=== PATIENT | female | born 1955 | race African-American/Black ===

== ENCOUNTER 2021-12-27 12:59 | Emergency (ER) | payer OTHER ==
[2021-12-27 15:07] LABS: CARBON DIOXIDE,CO2 26.1 mmol/L (21.0-32.0); POTASSIUM,K 3.2 mmol/L (3.5-5.1)
[2021-12-27] MEDS ORDERED: Potassium Chloride 20 MEQ Tab.ER PO ONE (15:14)
== END 2021-12-27 15:31 | disposition home or self-care (01) ==
LOC: MW.ED 12:59
DX: U07.1 COVID-19 (principal); I10 Essential (primary) hypertension; E11.9 Type 2 diabetes mellitus without complications; F17.210 Nicotine dependence, cigarettes, uncomplicated; E66.9 Obesity, unspecified; Z68.29 Body mass index [BMI] 29.0-29.9, adult; Z88.5 Allergy status to narcotic agent; Z88.0 Allergy status to penicillin; Z88.8 Allergy status to other drugs, medicaments and biological substances; Z79.84 Long term (current) use of oral hypoglycemic drugs; Z79.899 Other long term (current) drug therapy
CPT/HCPCS: 36415; 80053; 82150; 83690; 85025; 99284; A9270

== ENCOUNTER 2022-03-24 06:28 | Inpatient (IN) | payer BC, OTHER ==
[~2022-03-24 06:28] MED LIST: Albuterol 0.083% 2.5 MG/3 ML Neb Soln NEB PRN; Dexmedetomidine 200 MCG/2 ML SDV ONE; EPINEPHrine 1 MG/1 ML Amp ONE; Famotidine 20 MG/2 ML SDV IVPUSH SCH; HYDROmorphone 1 MG/ML Syringe IVPUSH PRN; Lactated Ringers 1,000 ML IV SCH; Lidocaine 2% 5 ML SDV ONE; Metoclopramide 10 MG/2 ML SDV IVPUSH PRN; Morphine 2 MG/ML SYRINGE IVPUSH PRN; Naloxone 0.4 MG/ML SDV IVPUSH PRN; Ondansetron 4 MG/2 ML SDV IVPUSH PRN; Ondansetron 4 MG/2 ML SDV ONE; Phenylephrine 1% 10 MG/ML SDV ONE; fentaNYL 100 MCG/2 ML SDV ONE; fentaNYL 50 MCG/ML SDV IVPUSH PRN; propofoL 100 ML ONE
[2022-03-24] MEDS ORDERED: Bupivacaine 0.25% 30 ML SDV ONE (06:29)
[2022-03-24] MEDS ORDERED: Tranexamic Acid 1,000 MG/10 ML Vial ONE (06:29)
[2022-03-24] MEDS ORDERED: Famotidine 20 MG/2 ML SDV ONE (06:49)
[2022-03-24] MEDS ORDERED: Dexamethasone 4 MG/ML 5 ML MDV ONE (06:53)
[2022-03-24] MEDS ORDERED: Lidocaine 2% 5 ML SDV ONE (06:53)
[2022-03-24] MEDS ORDERED: Ondansetron 4 MG/2 ML SDV ONE (06:53)
[2022-03-24] MEDS ORDERED: Ketorolac 30 MG/ML SDV ONE (06:53)
[2022-03-24] MEDS ORDERED: Magnesium Sulfate (4.06 MEQ/ML) 5 GM/10 ML SDV ONE (06:56)
[2022-03-24] MEDS ORDERED: Ropivacaine 49.25 ML, Ketorolac 30 MG, EPINEPHrine 0.5 MG, cloNIDine 80 MCG in Sodium C... INJECT SCH (07:00)
[2022-03-24] MEDS: Clindamycin Phosphate in D5W 600 MG in Premix Bag 1 BAG IV SCH ×4 (07:03→08:39)
[2022-03-24] MEDS ORDERED: Tranexamic Acid 1,000 MG in Sodium Chloride 0.9% 100 ML IV ONE (08:00)
[2022-03-24] MEDS ORDERED: Clindamycin Phosphate 900 MG/6 ML SDV IV SCH (08:00)
[2022-03-24] MEDS ORDERED: Clindamycin Phosphate in D5W 300 MG in Premix Bag 1 BAG IV ONE ×2 (08:23)
[2022-03-24] MEDS ORDERED: Calcium Chloride 10% 1 GM/10 ML Syringe ONE (09:39)
[2022-03-24] MEDS ORDERED: Glycopyrrolate 0.2 MG/ML SDV ONE (10:20)
[2022-03-24] MEDS ORDERED: diphenhydrAMINE 25 MG Cap PO PRN (10:39)
[2022-03-24] MEDS ORDERED: Ondansetron 4 MG/2 ML SDV IVPUSH PRN (10:39)
[2022-03-24] MEDS ORDERED: Sodium Chloride 0.9% 2.5 ML Syringe FLUSH PRN (10:39)
[2022-03-24] MEDS ORDERED: Aluminum Hydroxide/Magnesium Hydroxide/Simethicone XS Susp 30 ML Cup PO PRN (10:39)
[2022-03-24] MEDS ORDERED: Sodium Chloride 0.9% 10 ML Syringe FLUSH PRN (10:39)
[2022-03-24] MEDS ORDERED: Bisacodyl 10 MG Supp RECTAL PRN (10:39)
[2022-03-24] MEDS ORDERED: Acetaminophen 325 MG Tab PO SCH (11:00)
[2022-03-24] MEDS: Ketorolac 30 MG/ML SDV IVPUSH SCH ×3 (12:12→22:04)
[2022-03-24] MEDS: Acetaminophen 325 MG Tab PO SCH ×3 (13:13→21:41)
[2022-03-24 13:22] LABS: CARBON DIOXIDE,CO2 25.4 mmol/L (21.0-32.0); POTASSIUM,K 4.7 mmol/L (3.5-5.1)
[2022-03-24] MEDS ORDERED: Albuterol/Ipratropium 3.0-0.5 MG/3 ML Neb Soln NEB PRN (13:58)
[2022-03-24] MEDS: Aspirin 325 MG Tab PO SCH (16:26)
[2022-03-24] MEDS: Clindamycin Phosphate in D5W 900 MG in Premix Bag 1 BAG IV SCH ×2 (16:28)
[2022-03-24] MEDS: Insulin Aspart 100 Units/ML 3 ML Pen SUBCUT SCH (17:19)
[2022-03-24] MEDS ORDERED: atorvaSTATin 20 MG Tab PO SCH (21:00)
[2022-03-24] MEDS: Docusate Sodium 100 MG Cap PO SCH (21:42)
[2022-03-24] MEDS: Gabapentin 100 MG Cap PO SCH (21:42)
[2022-03-25] MEDS: Clindamycin Phosphate in D5W 900 MG in Premix Bag 1 BAG IV SCH ×2 (00:31)
[2022-03-25] MEDS: Acetaminophen 325 MG Tab PO SCH ×3 (00:33→09:19)
[2022-03-25] MEDS: Ketorolac 30 MG/ML SDV IVPUSH SCH (04:09)
[2022-03-25 06:21] LABS: CARBON DIOXIDE,CO2 27.8 mmol/L (21.0-32.0); POTASSIUM,K 4.1 mmol/L (3.5-5.1)
[2022-03-25] MEDS: Insulin Aspart 100 Units/ML 3 ML Pen SUBCUT SCH ×2 (07:34→12:00)
[2022-03-25] MEDS ORDERED: Ibuprofen 800 MG Tab PO SCH (09:00)
[2022-03-25] MEDS ORDERED: Famotidine 20 MG Tab PO SCH (09:00)
[2022-03-25] MEDS ORDERED: Polyethylene Glycol 3350 Powder 17 GM Packet PO SCH (09:00)
[2022-03-25] MEDS: Aspirin 325 MG Tab PO SCH (09:18)
[2022-03-25] MEDS: Gabapentin 100 MG Cap PO SCH (09:21)
[2022-03-25] MEDS: Docusate Sodium 100 MG Cap PO SCH (09:21)
== END 2022-03-25 11:15 | disposition home or self-care (01) | DRG 324 ==
LOC: MW.SDS 06:28 → EDSTATUS 08:00 → MW.MS 12:09 → MW.SDS 12:51 → MW.MS 12:52
PROVIDERS: ADMIT Orthopaedic Surgery; ATTEND Orthopaedic Surgery
PROC: 0SRB06Z Replacement of Left Hip Joint with Oxidized Zirconium on Polyethylene Synthetic Substitute, Open Approach (ICD-10-PCS; principal; 2022-03-24)
DX: M16.12 Unilateral primary osteoarthritis, left hip (principal); E78.00 Pure hypercholesterolemia, unspecified; I10 Essential (primary) hypertension; E11.9 Type 2 diabetes mellitus without complications; F17.210 Nicotine dependence, cigarettes, uncomplicated; M19.90 Unspecified osteoarthritis, unspecified site; J45.20 Mild intermittent asthma, uncomplicated; E78.2 Mixed hyperlipidemia; Z88.6 Allergy status to analgesic agent; Z88.0 Allergy status to penicillin; Z88.5 Allergy status to narcotic agent
CPT/HCPCS: 36415; 73501-26-LT; 73501-LT; 80048; 82947; 83735; 85014; 85018; 85025; 86850; 86900; 86901; 97162-GP; 97530-GP; A9270-GY; J0131; J0171; J0735; J1100; J1815-GY; J1885; J2370; J2405; J2704; J2795; J3010; J3475; J3490; J7120

== ENCOUNTER 2022-04-04 12:57 | Emergency (ER) | payer BC, OTHER | END 2022-04-04 15:25 | disposition home or self-care (01) | LOC: MW.ED 12:57 | DX: M79.89 Other specified soft tissue disorders (principal); E78.00 Pure hypercholesterolemia, unspecified; I10 Essential (primary) hypertension; J45.909 Unspecified asthma, uncomplicated; E11.9 Type 2 diabetes mellitus without complications; M19.90 Unspecified osteoarthritis, unspecified site; Z88.6 Allergy status to analgesic agent; Z88.8 Allergy status to other drugs, medicaments and biological substances; Z88.5 Allergy status to narcotic agent; Z88.0 Allergy status to penicillin; Z79.899 Other long term (current) drug therapy; Z79.82 Long term (current) use of aspirin; Z79.84 Long term (current) use of oral hypoglycemic drugs | CPT/HCPCS: 93971-26-LT; 93971-LT; 99282; 99283 ==

== ENCOUNTER 2023-03-05 12:54 | Emergency (ER) | payer BC, MEDICARE, OTHER | END 2023-03-05 14:38 | disposition home or self-care (01) | LOC: MW.ED 12:54 | DX: H43.811 Vitreous degeneration, right eye (principal); I10 Essential (primary) hypertension; E78.00 Pure hypercholesterolemia, unspecified; J45.909 Unspecified asthma, uncomplicated; E11.9 Type 2 diabetes mellitus without complications; Z79.84 Long term (current) use of oral hypoglycemic drugs; Z79.899 Other long term (current) drug therapy; Z88.6 Allergy status to analgesic agent; Z88.5 Allergy status to narcotic agent; Z88.0 Allergy status to penicillin | CPT/HCPCS: 99283 ==

== ENCOUNTER 2023-10-05 16:50 | Emergency (ER) | payer OTHER, BC ==
[2023-10-05] MEDS: Orphenadrine 60 MG/2 ML Inj IM ONE (18:03)
[2023-10-05] MEDS: Lidocaine 4% 1 each Patch TOP STA (18:03)
== END 2023-10-05 19:59 | disposition home or self-care (01) ==
LOC: MW.ED 16:50
DX: S09.90XA Unspecified injury of head, initial encounter (principal); M54.2 Cervicalgia; I10 Essential (primary) hypertension; E78.00 Pure hypercholesterolemia, unspecified; E11.9 Type 2 diabetes mellitus without complications; F17.210 Nicotine dependence, cigarettes, uncomplicated; Z79.84 Long term (current) use of oral hypoglycemic drugs; Z79.899 Other long term (current) drug therapy; Z88.0 Allergy status to penicillin; Z88.5 Allergy status to narcotic agent; Z88.6 Allergy status to analgesic agent; Z75.8 Other problems related to medical facilities and other health care; W22.8XXA Striking against or struck by other objects, initial encounter
CPT/HCPCS: 70450; 72125; 96372; 99283; A9270; J2360

== ENCOUNTER 2023-11-14 17:18 | Emergency (ER) | payer MEDICARE, OTHER, BC ==
[2023-11-14] MEDS ORDERED: 50% Dextrose in Water 50 ML Syringe IVPUSH PRN ×2 (17:34→18:34)
[2023-11-14] MEDS ORDERED: Glucagon,Human Recombinant 1 MG Vial IM PRN ×2 (17:34→18:34)
[2023-11-14] MEDS: Insulin Regular, Human 100 Units/ML 10 ML Vial SUBCUT ONE ×2 (17:53→18:40)
[2023-11-14] MEDS: Sodium Chloride 0.9% 1,000 ML IV ONE (17:53)
[2023-11-14] MEDS: Sodium Chloride 0.9% 10 ML Syringe FLUSH PRN (17:54)
[2023-11-14] MEDS: Sodium Chloride 0.9% 2.5 ML Syringe FLUSH PRN (17:54)
[2023-11-14 18:14] LABS: BASOPHILS ABSOLUTE AUTO 0.03 K/uL (0.00-0.20); BASOPHILS PERCENT AUTO 0.3 % (0.0-1.0); EOSINOPHILS ABSOLUTE AUTO 0.12 K/uL (0.00-0.45); EOSINOPHILS PERCENT AUTO 1.3 % (0.0-6.0); HEMATOCRIT 37.6 % (37.0-47.0); IMMATURE GRAN ABSOLUTE AUTO 0.02 K/uL (0.00-0.05); IMMATURE GRAN PERCENT AUTO 0.2 % (0.0-0.4); LYMPHOCYTES ABSOLUTE AUTO 4.32 K/uL (1.00-4.80); LYMPHOCYTES PERCENT AUTO 47.7 % (24.0-44.0); MEAN CORPUSCULAR HEMOGLOBIN 23.1 pg (28.0-32.0); MEAN CORPUSCULAR HGB CONC 31.9 g/dL (32.0-36.0); MEAN CORPUSCULAR VOLUME 72.3 fL (83.0-99.0); MEAN PLATELET VOLUME 9.6 fL (9.4-12.3); MONOCYTES ABSOLUTE AUTO 0.41 K/uL (0.00-0.80); MONOCYTES PERCENT AUTO 4.5 % (0.0-8.0); NEUTROPHILS ABSOLUTE AUTO 4.16 K/uL (1.80-7.70); PLATELET COUNT,PLT 240 K/uL (150-400); WHITE BLOOD CELL COUNT,WBC 9.06 K/uL (3.9-11.3)
[2023-11-14 18:39] LABS: A/G RATIO 0.9 (0.9-1.6); ALBUMIN 3.5 g/dL (3.4-5.0); BILIRUBIN TOTAL 0.5 mg/dL (0.2-1.0); CARBON DIOXIDE,CO2 24.5 mmol/L (21.0-32.0); EST CRCL DRUG DOSING (CG) 38.68 mL/min; POTASSIUM,K 3.8 mmol/L (3.5-5.1); PROTEIN TOTAL,TP 7.4 g/dL (6.4-8.2)
== END 2023-11-14 19:07 | disposition home or self-care (01) ==
LOC: MW.ED 17:18
DX: E11.65 Type 2 diabetes mellitus with hyperglycemia (principal); I10 Essential (primary) hypertension; J45.909 Unspecified asthma, uncomplicated; Z79.84 Long term (current) use of oral hypoglycemic drugs; Z88.6 Allergy status to analgesic agent; Z88.5 Allergy status to narcotic agent; Z88.0 Allergy status to penicillin
CPT/HCPCS: 36415; 80053; 82947; 85025; 96360; 99284; J1815; J3490; J7030

== ENCOUNTER 2023-12-25 15:54 | Emergency (ER) | payer BC, MEDICARE ==
[2023-12-25] MEDS ORDERED: Sodium Chloride 0.9% 2.5 ML Syringe FLUSH PRN (16:09)
[2023-12-25] MEDS ORDERED: Sodium Chloride 0.9% 10 ML Syringe FLUSH PRN (16:09)
[2023-12-25 16:28] LABS: BASOPHILS ABSOLUTE AUTO 0.07 K/uL (0.00-0.20); BASOPHILS PERCENT AUTO 0.8 % (0.0-1.0); EOSINOPHILS ABSOLUTE AUTO 0.23 K/uL (0.00-0.45); EOSINOPHILS PERCENT AUTO 2.6 % (0.0-6.0); HEMATOCRIT 35.4 % (37.0-47.0); IMMATURE GRAN ABSOLUTE AUTO 0.03 K/uL (0.00-0.05); IMMATURE GRAN PERCENT AUTO 0.3 % (0.0-0.4); LYMPHOCYTES ABSOLUTE AUTO 4.37 K/uL (1.00-4.80); MEAN CORPUSCULAR HEMOGLOBIN 23.5 pg (28.0-32.0); MEAN CORPUSCULAR HGB CONC 31.1 g/dL (32.0-36.0); MEAN CORPUSCULAR VOLUME 75.6 fL (83.0-99.0); MEAN PLATELET VOLUME 8.6 fL (9.4-12.3); MONOCYTES ABSOLUTE AUTO 0.48 K/uL (0.00-0.80); MONOCYTES PERCENT AUTO 5.4 % (0.0-8.0); NEUTROPHILS ABSOLUTE AUTO 3.74 K/uL (1.80-7.70); NEUTROPHILS PERCENT AUTO 41.9 % (41.0-71.0); PLATELET COUNT,PLT 340 K/uL (150-400); RED BLOOD CELL COUNT 4.68 M/uL (4.10-5.30); WHITE BLOOD CELL COUNT,WBC 8.92 K/uL (3.9-11.3)
[2023-12-25 16:53] LABS: A/G RATIO 0.9 (0.9-1.6); ALBUMIN 3.6 g/dL (3.4-5.0); BILIRUBIN TOTAL 0.4 mg/dL (0.2-1.0); CALCIUM 9.6 mg/dL (8.5-10.1); CARBON DIOXIDE,CO2 25.6 mmol/L (21.0-32.0); CREATININE 0.7 mg/dL (0.6-1.0); EST CRCL DRUG DOSING (CG) 55.25 mL/min; POTASSIUM,K 3.8 mmol/L (3.5-5.1); PROTEIN TOTAL,TP 7.6 g/dL (6.4-8.2)
[2023-12-25] MEDS: methylPREDNISolone Sodium Succinate 40 MG/1 ML SDV IVPUSH ONE (17:07)
[2023-12-25 17:53] LABS: TSH ULTRASENSITIVE 0.91 uIU/mL (0.36-3.74)
[2023-12-25] MEDS: Aspirin 81 MG Tab.Chew PO ONE (18:27)
== END 2023-12-25 20:35 | disposition home or self-care (01) ==
LOC: MW.ED 15:54
DX: R07.9 Chest pain, unspecified (principal); M25.511 Pain in right shoulder; M25.512 Pain in left shoulder; G89.29 Other chronic pain; R94.31 Abnormal electrocardiogram [ECG] [EKG]; I10 Essential (primary) hypertension; E78.00 Pure hypercholesterolemia, unspecified; J45.909 Unspecified asthma, uncomplicated; E11.9 Type 2 diabetes mellitus without complications; Z88.6 Allergy status to analgesic agent; Z88.0 Allergy status to penicillin; Z88.5 Allergy status to narcotic agent; Z88.8 Allergy status to other drugs, medicaments and biological substances; Z79.84 Long term (current) use of oral hypoglycemic drugs; Z79.899 Other long term (current) drug therapy; Z75.8 Other problems related to medical facilities and other health care
CPT/HCPCS: 36415; 71045; 80053; 83690; 83880; 84443; 84484; 85025; 87428; 93005; 99285; A9270

== ENCOUNTER 2024-05-28 17:27 | Emergency (ER) | payer MEDICARE | END 2024-05-28 22:03 | disposition home or self-care (01) | LOC: MW.ED 17:27 | DX: B34.9 Viral infection, unspecified (principal); I10 Essential (primary) hypertension; E78.00 Pure hypercholesterolemia, unspecified; J45.909 Unspecified asthma, uncomplicated; E11.9 Type 2 diabetes mellitus without complications; Z79.84 Long term (current) use of oral hypoglycemic drugs; Z79.899 Other long term (current) drug therapy; Z88.5 Allergy status to narcotic agent; Z88.6 Allergy status to analgesic agent; Z88.0 Allergy status to penicillin | CPT/HCPCS: 71046; 71046-26; 87428-QW; 87651; 99283; 99284 ==

== ENCOUNTER 2024-10-15 17:43 | Emergency (ER) | payer MEDICARE, OTHER ==
[2024-10-15] MEDS: Ketorolac 30 MG/ML SDV IVPUSH ONE (19:06)
[2024-10-15] MEDS: diphenhydrAMINE 50 MG/ML SDV IVPUSH ONE (19:06)
[2024-10-15 19:17] LABS: BASOPHILS ABSOLUTE AUTO 0.04 K/uL (0.00-0.20); BASOPHILS PERCENT AUTO 0.3 % (0.0-1.0); EOSINOPHILS ABSOLUTE AUTO 0.12 K/uL (0.00-0.45); EOSINOPHILS PERCENT AUTO 1.0 % (0.0-6.0); IMMATURE GRAN ABSOLUTE AUTO 0.03 K/uL (0.00-0.05); IMMATURE GRAN PERCENT AUTO 0.3 % (0.0-0.4); LYMPHOCYTES ABSOLUTE AUTO 4.67 K/uL (1.00-4.80); LYMPHOCYTES PERCENT AUTO 39.4 % (24.0-44.0); MEAN PLATELET VOLUME 9.2 fL (9.4-12.3); MONOCYTES ABSOLUTE AUTO 0.72 K/uL (0.00-0.80); MONOCYTES PERCENT AUTO 6.1 % (0.0-8.0); NEUTROPHILS ABSOLUTE AUTO 6.28 K/uL (1.80-7.70); NEUTROPHILS PERCENT AUTO 52.9 % (41.0-71.0); NRBC ABSOLUTE 0.00 K/uL (0.00-0.02); NRBC PERCENT 0.0 /100WBC (0.0-0.2); PLATELET COUNT,PLT 299 K/uL (150-400); RED BLOOD CELL COUNT 5.05 M/uL (4.10-5.30); WHITE BLOOD CELL COUNT,WBC 11.86 K/uL (3.9-11.3)
[2024-10-15 19:46] LABS: BLOOD UREA NITROGEN,BUN 12.0 mg/dL (7.0-18.0); CARBON DIOXIDE,CO2 26.2 mmol/L (21.0-32.0); CHLORIDE,CL 107.0 mmol/L (98-107); CREATININE 1.0 mg/dL (0.6-1.0); EST CRCL DRUG DOSING (CG) 38.14 mL/min; GLUCOSE RANDOM 84.0 mg/dL (74-106); POTASSIUM,K 3.5 mmol/L (3.5-5.1); SODIUM,NA 144.0 mmol/L (136-145)
[2024-10-15 19:56] LABS: ESTIMATED GFR 61.0 mL/min (>60)
== END 2024-10-15 20:26 | disposition home or self-care (01) ==
LOC: MW.ED 17:43
DX: G43.909 Migraine, unspecified, not intractable, without status migrainosus (principal); I10 Essential (primary) hypertension; E78.00 Pure hypercholesterolemia, unspecified; J45.909 Unspecified asthma, uncomplicated; E11.9 Type 2 diabetes mellitus without complications; F17.210 Nicotine dependence, cigarettes, uncomplicated; Z88.6 Allergy status to analgesic agent; Z88.8 Allergy status to other drugs, medicaments and biological substances; Z88.5 Allergy status to narcotic agent; Z88.0 Allergy status to penicillin; Z79.84 Long term (current) use of oral hypoglycemic drugs; Z79.899 Other long term (current) drug therapy
CPT/HCPCS: 36415; 70450; 80048; 85025; 93005; 96361; 96374; 96375; 99285; J1885; J2765; J7030; 93010; 99284; J1200

== ENCOUNTER 2024-10-16 10:21 | Emergency (ER) | payer BC, MEDICARE, OTHER ==
[2024-10-16] MEDS: Ketorolac 30 MG/ML SDV IM ONE (12:59)
[2024-10-16 13:34] LABS: BASOPHILS ABSOLUTE AUTO 0.05 K/uL (0.00-0.20); BASOPHILS PERCENT AUTO 0.7 % (0.0-1.0); EOSINOPHILS ABSOLUTE AUTO 0.18 K/uL (0.00-0.45); EOSINOPHILS PERCENT AUTO 2.3 % (0.0-6.0); IMMATURE GRAN ABSOLUTE AUTO 0.01 K/uL (0.00-0.05); IMMATURE GRAN PERCENT AUTO 0.1 % (0.0-0.4); LYMPHOCYTES ABSOLUTE AUTO 3.81 K/uL (1.00-4.80); LYMPHOCYTES PERCENT AUTO 49.7 % (24.0-44.0); MEAN PLATELET VOLUME 9.0 fL (9.4-12.3); MONOCYTES ABSOLUTE AUTO 0.35 K/uL (0.00-0.80); MONOCYTES PERCENT AUTO 4.6 % (0.0-8.0); NEUTROPHILS ABSOLUTE AUTO 3.27 K/uL (1.80-7.70); NEUTROPHILS PERCENT AUTO 42.6 % (41.0-71.0); NRBC ABSOLUTE 0.00 K/uL (0.00-0.02); NRBC PERCENT 0.0 /100WBC (0.0-0.2); PLATELET COUNT,PLT 280 K/uL (150-400); RED BLOOD CELL COUNT 4.69 M/uL (4.10-5.30); WHITE BLOOD CELL COUNT,WBC 7.67 K/uL (3.9-11.3)
[2024-10-16 14:19] LABS: A/G RATIO 0.9 (0.9-1.6); ALANINE AMINOTRANSFERASE,ALT 24.0 IU/L (14-63); ASPARTATE AMNIOTRANSFERASE,AST 16.0 IU/L (15-37); BILIRUBIN TOTAL 0.5 mg/dL (0.2-1.0); BLOOD UREA NITROGEN,BUN 12.0 mg/dL (7.0-18.0); CARBON DIOXIDE,CO2 24.2 mmol/L (21.0-32.0); CHLORIDE,CL 109.0 mmol/L (98-107); CREATININE 0.7 mg/dL (0.6-1.0); EST CRCL DRUG DOSING (CG) 68.25 mL/min; GLUCOSE RANDOM 91.0 mg/dL (74-106); POTASSIUM,K 4.0 mmol/L (3.5-5.1); PROTEIN TOTAL,TP 7.5 g/dL (6.4-8.2); SODIUM,NA 143.0 mmol/L (136-145)
[2024-10-16 14:27] LABS: ESTIMATED GFR 94.0 mL/min (>60)
== END 2024-10-16 16:01 | disposition home or self-care (01) ==
LOC: MW.ED 10:21
DX: F45.8 Other somatoform disorders (principal); I10 Essential (primary) hypertension; E78.00 Pure hypercholesterolemia, unspecified; E11.9 Type 2 diabetes mellitus without complications; Z88.0 Allergy status to penicillin; Z88.5 Allergy status to narcotic agent; Z88.8 Allergy status to other drugs, medicaments and biological substances; Z79.84 Long term (current) use of oral hypoglycemic drugs; Z79.899 Other long term (current) drug therapy
CPT/HCPCS: 36415; 80053; 82330; 83735; 85025; 96372; 99283; J1885; 99284